=== PATIENT | female | born 1975 | race Hispanic/Latino ===

== ENCOUNTER 2023-10-22 08:14 | Outpatient (RCR) | payer MEDICAID, SELFPAY ==
--- NOTE | 2023-10-22 09:24 | PT.OIERPT ---
PT OP Initial Eval Patient Information Outpatient Physical Therapy Treatment Date: 10/22/23 Visit Reasons: Lumbar Region Initial Assessment Subjective: Pt c/o upper back pain and hands that go numb at night and points between the shoulder blades as site of pain. She doesn't want therapy on the L/S she wants therapy for the upper back Objective: No evaluation no charges Assessment: The therapy referral and auth are for lumbar pain which she is not having and that doesn't include thoracic or upper T/S pain. Pt will need updated order and authorization to include the T/S to do therapy on that area. Treatment Plan Pt will return to provider for therapy order
== END 2023-10-22 23:59 | disposition home or self-care (01) ==
LOC: CPTX 08:14
PROVIDERS: PCP Physician Assistant; Referring Provider Physician Assistant; Visit Provider Physician Assistant
DX: Z53.8 Procedure and treatment not carried out for other reasons (principal)

== ENCOUNTER 2024-11-16 08:30 | Outpatient (RCR) | payer MEDICAID, SELFPAY ==
--- NOTE | 2024-11-02 14:23 | PT.OIERPT ---
PT OP Initial Eval Patient Information Outpatient Physical Therapy Treatment Date: 11/02/24 Visit Reasons: Plantar Fascial Fibromatosis Medical Diagnosis: M72.2 Treatment Dx #1: L foot pain Start of Care: 11/02/24 Date of Onset: 2023 Smoking Status Smoking Status: Never smoker Initial Assessment Subjective: Pt is 48 yr old serbian speaking female who reports L heel pain since the end of last year. This pain limits walking tolerance to about 20 mins, squatting, and stairs. PMH: none reported other than this issue Imaging: with provider Pt goal: for the pain to go away in L foot Objective: L ankle ArOM: DF: 7 deg PF: 45 deg Inversion/Eversion: 10 deg Heel raise: without pain Gait pattern: slightly antalgic with less WB on L foot TTP: high of calcaneus with light pressure Assessment: Pt presents with high tissue irritability of L heel plantar aspect with light pressure consistent with referring Dx. Pt may benefit from skilled therapy and has fair/poor rehab potential to meet goals. Short Term and Senior Care Goals 1. ind with HEP 2. Ambulate for 30 mins without increase in L heel pain 3. Decreased TTP of calcaneus from high to min Treatment Plan ?1. Manual therapy ? 2. Therex ? 3. Modalities as indicated, moist heat, ice, estim Frequency and Duration: 1-2x a week for 12 sessions plus eval Certification Dates: 11/02/24 to 02/01/25 Procedure Charges OP PT Eval Mod Complex 30 minutes: Yes
--- NOTE | 2024-11-09 13:31 | PT.ODAYNRPT ---
PT Outpatient Daily Note OP Daily Note Outpatient Physical Therapy Treatment Date: 11/09/24 Visit Reasons: Plantar Fascial Fibromatosis Subjective: Same as eval Objective: See F/S for therex MHP x5' L heel Assessment: Good demo of therex Plan: Continue per POC Length of Time (minutes) of Treatment: 30 Minutes Procedure Charges Therapeutic Exercise 30 minutes: Yes
--- NOTE | 2024-11-16 09:06 | PT.ODAYNRPT ---
PT Outpatient Daily Note OP Daily Note Outpatient Physical Therapy Treatment Date: 11/16/24 Visit Reasons: Plantar Fascial Fibromatosis Subjective: No new complaints, pt compliant with performing HEP. Objective: Please see flow sheet for ther ex list. Assessment: Tactile cues to facilitate ankle mobility during ankle exercise using BAPS board, pt performed with improved technique. Plan: Continue with pOC. Length of Time (minutes) of Treatment: 30 Minutes Procedure Charges Therapeutic Exercise 30 minutes: Yes
== END 2024-11-21 23:59 | disposition home or self-care (01) ==
LOC: CPTX 08:30
PROVIDERS: PCP Student in an Organized Health Care Education/Training Program; Referring Provider Student in an Organized Health Care Education/Training Program; Visit Provider Student in an Organized Health Care Education/Training Program
DX: M79.672 Pain in left foot (principal); R26.2 Difficulty in walking, not elsewhere classified; M72.2 Plantar fascial fibromatosis
CPT/HCPCS: 97110; 97162

== ENCOUNTER 2024-12-20 16:00 | Outpatient (RCR) | payer MEDICAID, SELFPAY ==
--- NOTE | 2024-11-23 09:10 | PT.ODAYNRPT ---
PT Outpatient Daily Note OP Daily Note Outpatient Physical Therapy Treatment Date: 11/23/24 Visit Reasons: Plantar fascial fibrosis Subjective: Less heel pain since starting therapy Objective: See F/S for therex Assessment: Low tissue irritability with therex in L heel Plan: Continue per POC Length of Time (minutes) of Treatment: 30 Minutes Procedure Charges Therapeutic Exercise 30 minutes: Yes
--- NOTE | 2024-11-30 09:51 | PT.ODAYNRPT ---
PT Outpatient Daily Note OP Daily Note Outpatient Physical Therapy Treatment Date: 11/30/24 Visit Reasons: Plantar fascial fibrosis Subjective: Less heel pain since starting therapy Objective: See F/S for therex MT: STM heel x7' with [place] Assessment: Low tissue irritability with therex in L heel Plan: Continue per POC Length of Time (minutes) of Treatment: 30 Minutes Procedure Charges Therapeutic Exercise 30 minutes: Yes
--- NOTE | 2024-12-12 17:21 | PT.ODAYNRPT ---
PT Outpatient Daily Note OP Daily Note Outpatient Physical Therapy Treatment Date: 12/12/24 Visit Reasons: Plantar fascial fibrosis Subjective: Less heel pain since starting therapy Objective: See F/S for therex Assessment: Good progress with goals. Low tissue irritability with therex in L heel Plan: Continue per POC Length of Time (minutes) of Treatment: 30 Minutes Procedure Charges Therapeutic Exercise 30 minutes: Yes
--- NOTE | 2024-12-14 17:56 | PT.ODAYNRPT ---
PT Outpatient Daily Note OP Daily Note Outpatient Physical Therapy Treatment Date: 12/14/24 Visit Reasons: Plantar fascial fibrosis Subjective: Less heel pain since starting therapy Objective: See F/S for therex Assessment: Good progress with goals. Low tissue irritability with therex in L heel Plan: Continue per POC Length of Time (minutes) of Treatment: 30 Minutes Procedure Charges Therapeutic Exercise 30 minutes: Yes
--- NOTE | 2024-12-20 16:31 | PT.ODAYNRPT ---
PT Outpatient Daily Note OP Daily Note Outpatient Physical Therapy Treatment Date: 12/20/24 Visit Reasons: Plantar fascial fibrosis Subjective: Variable pain level. The pain comes and goes in the bottom of the heel. Not sure if therapy has helped the pain. She has to leave early for an appt today Objective: See F/S for therex Assessment: Heel pain is consistent with calcaneal osteophyte Plan: Reassess Length of Time (minutes) of Treatment: 15 Minutes Procedure Charges Therapeutic Exercise 15 minutes: Yes
== END 2024-12-21 23:59 | disposition home or self-care (01) ==
LOC: CPTX 16:00
PROVIDERS: PCP Student in an Organized Health Care Education/Training Program; Referring Provider Student in an Organized Health Care Education/Training Program; Visit Provider Student in an Organized Health Care Education/Training Program
DX: M79.672 Pain in left foot (principal); M72.2 Plantar fascial fibromatosis
CPT/HCPCS: 97110

== ENCOUNTER → 2025-01-10 | Outpatient (CLI) | payer MEDICAID, SELFPAY ==
--- NOTE | 2025-01-10 15:45 | XR_ITS ---
Examination: Screening digital mammography, bilateral Computer aided detection 3-D breast Tomosynthesis, bilateral Date and time of exam: January 10, 2025 1532 hours Compared to mammograms dated to December 10, 2018 Indication: Screening Technique: Nonmagnified MLO, CC views of the breasts to been obtained, reconstructed from 3-D Tomosynthesis images. R2 computer aided detection program utilized for evaluation of suspicious masses and/or abnormal calcifications. 3-D Tomosynthesis images obtained. Findings: The breasts are heterogeneously dense, which may obscure small masses Breast biopsy marker 12:00 position left breast Numerous bilateral calcifications No interval suspicious masses Impression: BI-RADS category II: Benign Findings. Recommend 1 year follow-up mammogram. Given the breast biopsy left breast 12:00 nodule February 14, 2019, recommend follow-up bilateral breast sonography
== END | disposition home or self-care (01) ==
LOC: CDIM 15:18
PROVIDERS: Referring Provider Physician Assistant; Visit Provider Physician Assistant
DX: Z12.31 Encounter for screening mammogram for malignant neoplasm of breast (principal); R92.323 Mammographic fibroglandular density, bilateral breasts; N63.25 Unspecified lump in the left breast, overlapping quadrants
CPT/HCPCS: 77063; 77067

== ENCOUNTER 2025-01-23 15:51 | Outpatient (RCR) | payer MEDICAID, SELFPAY ==
--- NOTE | 2025-01-23 18:25 | PT.ODS1RPT ---
PT OP Progress/Discharge Note Date of Service: 01/23/25 Progress Note/DC Note Progress Note/Discharge Note: DC Note Patient Information Visit Reasons: Plantar Fascial Fibromatosis Service Continue Service or Discharge: Discharge Discharge Date: 01/23/25 Status Subjective: Pt reports continued pain of L heel about the same as before therapy. Difficulty ambulating more than 25 mins Objective: L ankle AROM: PF: 50 deg DF: 7 deg TTP of calcaneus: high of medial and lateral sides Assessment: Pt has attended 8 Rx sessions with limited progress with goals due to continued pain. She hasn't met goals of decreased TTP of calcaneus and it's still high and she didn't meet the goal of ambulating for 30 mins without L heel pain. Thank you for your referrals Plan: D/C with HEP Procedure Charges Therapeutic Exercise 30 minutes: Yes
== END 2025-02-20 23:59 | disposition home or self-care (01) ==
LOC: CPTX 15:51
PROVIDERS: PCP Student in an Organized Health Care Education/Training Program; Referring Provider Student in an Organized Health Care Education/Training Program; Visit Provider Student in an Organized Health Care Education/Training Program
DX: M79.672 Pain in left foot (principal); R26.2 Difficulty in walking, not elsewhere classified; M72.2 Plantar fascial fibromatosis
CPT/HCPCS: 97110

== ENCOUNTER → 2025-05-08 | Outpatient (CLI) | payer MEDICAID, SELFPAY ==
--- NOTE | 2025-05-08 14:30 | XR_ITS ---
Examination: Breast ultrasound complete, bilateral Date and time of exam: May 08, 2025 1336 hours INDICATIONS: History left breast biopsy 12:00 nodule February 14, 2019 Technique: Real-time grayscale ultrasonographic imaging bilateral breasts, including all 4 quadrants as well as nipple retroareolar and axillary regions. Findings: Sonographic images right breast Multiple benign cysts, the largest in the 9:00 position 7 x 6 mm, no solid nodules Sonographic images left breast Multiple benign cysts 12:00 nodule lobular margins 10 x 12 mm 1:00 nodule circumscribed 8 x 7 mm 5:00 nodule circumscribed 6 x 4 mm IMPRESSION: BI-RADS Category 3: Probably benign findings One additional 6 month left breast sonogram follow-up is needed to document stability of solid nodules described above
== END | disposition home or self-care (01) ==
LOC: CDIM 13:36
PROVIDERS: PCP Physician Assistant; Referring Provider Physician Assistant; Visit Provider Physician Assistant
DX: N63.25 Unspecified lump in the left breast, overlapping quadrants (principal); N63.21 Unspecified lump in the left breast, upper outer quadrant; N63.23 Unspecified lump in the left breast, lower outer quadrant
CPT/HCPCS: 76641